=== PATIENT | male | born 1965 | race Caucasian/White ===

== ENCOUNTER 2024-01-23 08:05 | Day surgery (SDC) | payer BC ==
[2024-01-18 14:59] VITALS: BMI 31.4
[2024-01-23] MEDS ORDERED: BUPIVACAINE HCL/PF 0.25% (2.5MG/ML) 10 ML VIAL ONE (08:47)
[2024-01-23] MEDS ORDERED: MIDAZOLAM HCL 2 MG/2 ML SINGLE DOSE VIAL ONE ×2 (08:53→10:52)
[2024-01-23] MEDS ORDERED: BUPIVACAINE HCL/EPINEPHRINE/PF 30 ML VIAL IJ ONE (09:10)
[2024-01-23] MEDS ORDERED: DEXAMETHASONE SOD PHOSPHATE 10 MG/1 ML VIAL ONE (10:02)
[2024-01-23] MEDS ORDERED: ROPIVACAINE HCL/PF 100 MG/20 ML VIAL ONE (10:02)
[2024-01-23] MEDS ORDERED: BUPIVACAINE HCL/PF 0.5% (5MG/ML) 10 ML VIAL ONE (10:13)
[2024-01-23] MEDS ORDERED: ONDANSETRON 4 MG/2 ML VIAL IVPUSH PRN (10:37)
[2024-01-23] MEDS ORDERED: LACTATED RINGERS SOLUTION 1,000 ML IV SCH (10:45)
[2024-01-23] MEDS ORDERED: PROPOFOL 40 ML ONE (10:47)
[2024-01-23] MEDS ORDERED: ceFAZolin SODIUM 1 GM VIAL ONE (11:20)
[2024-01-23] MEDS ORDERED: LIDOCAINE HCL/PF 2% SDV 5ML VIAL ONE (11:20)
[2024-01-23] MEDS ORDERED: ONDANSETRON 4 MG/2 ML VIAL ONE (11:20)
[2024-01-23 12:51] VITALS: TEMP 97.3
[2024-01-23 14:27] VITALS: BP 136/80; PULSE 64; RESP 18
== END 2024-01-23 14:27 | disposition home or self-care (01) ==
LOC: FASU 08:05
PROVIDERS: ATTEND Orthopaedic Surgery
PROC: 0RNJ4ZZ Release Right Shoulder Joint, Percutaneous Endoscopic Approach (ICD-10-PCS; principal; 2024-01-23 11:04)
DX: M75.101 Unspecified rotator cuff tear or rupture of right shoulder, not specified as traumatic (principal)
CPT/HCPCS: 94760; C1713; J1100